=== PATIENT | female | born 1990 | race Caucasian/White ===

== ENCOUNTER 2018-03-21 22:24 | Emergency (ER) | payer OTHER ==
[~2018-03-21] VITALS: Ht 162.6 cm; Wt 68.0 kg
--- NOTE | 2018-03-21 22:25 | NUR ---
"VB X15 MINUTES", NAD NOTED, VSS, RESP EVEN AND UNLABORED, PT WAS PUT ON MONITOR AND HOSPITAL GOWN, WAITING FOR MD STAPLES.
[2018-03-21 23:23] VITALS: BP 118/80
--- NOTE | 2018-03-21 23:26 | NUR ---
Patient does not wish to proceed with medical care recommended by Dr. Valenzuela. Patient given information related to possible complications, up to and including , which could occur as a result of leaving the hospital at this time. Patient verbalizes understanding of risks involved due to leaving against medical advice. Patient has signed AMA form.
[2018-03-21] MEDS ORDERED: IV NS 0.9% 1,000 ML BAG IV ONE (23:30)
== END 2018-03-21 23:28 | disposition left against medical advice (07) ==
LOC: ER 22:26
DX: O26.892 Other specified pregnancy related conditions, second trimester (principal); R10.2 Pelvic and perineal pain; F10.10 Alcohol abuse, uncomplicated; Z3A.18 18 weeks gestation of pregnancy
CPT/HCPCS: A4606; J7030; Z7610